=== PATIENT | female | born 1970 | race Caucasian/White ===

== ENCOUNTER 2022-09-11 07:29 | Outpatient (CLI) | payer BC, SELFPAY ==
--- NOTE | 2022-09-11 08:00 | CRLHL7_ITS ---
For Patients: As a result of the Century Cures Act, medical imaging exams and procedure reports are released immediately into your electronic medical record. You may view this report before your referring provider. If you have questions, please contact your health care provider. INDICATION: Abdominal bloating. TECHNIQUE: Contrast-enhanced CT of the abdomen and pelvis. 65 cc nonionic Isovue-370 administered. FINDINGS: At the lung bases there is nodularity along each hemidiaphragm and possible discrete intrapulmonary nodules. A tiny nodule is identified on the right major fissure which could be benign but there is an approximately 1.1 cm nodule at the left lung base potentially arising from the left hemidiaphragm. There is also minimal pleural thickening and/or trace pleural fluid. Soft tissue nodular implant along the inferolateral right lower lobe of the lung along the pleura, image 15 series 2 measuring 0.8 x 1.2 cm. Abdominopelvic ascites which appears malignant given its mass effect upon the liver. Curvilinear low attenuation changes along the capsular surface of the liver posteriorly, image 21 series 2 likely tumor implant. Increased attenuation of the omentum possibly related to omental metastatic disease. There is an ill-defined right lower quadrant/pelvic mass with areas of subtle increased attenuation. This is an ill-defined mass potentially related to an ovarian mass as a normal ovary is not seen on the right. A normal left ovary is also not confidently identified. Abnormal enhancement to the uterus which appears to contain multiple masses some of which are calcified. Within the right lower quadrant there is a tubular-shaped structure with a small calcification or potentially enhancement, image 82 series 2. The possibility of an abnormal appendix is also not excluded. There is no evidence for small or large bowel obstruction. The liver itself is negative for masses or biliary dilatation. No splenomegaly. The pancreas and gallbladder are unremarkable. Both adrenal glands are within normal limits. No hydronephrosis of either kidney. No cystic or solid renal masses. Normal caliber abdominal aorta and iliac arteries. Normal inferior vena cava. The included skeleton is unremarkable. These findings were called to and discussed with Dr. Fiona Banda at 9:50 a.m. on 09/11/2022. IMPRESSION: 1. Malignant-appearing abdominopelvic ascites. Right ovarian mass. Ovarian malignancy is one etiology. 2. Abnormal-appearing uterus. The above described findings could be related to a uterine malignancy. 3. Dilated tubular structure right lower quadrant potentially an appendix. A mucinous carcinoma of the appendix is not entirely excluded. 4. CT changes compatible with metastatic disease involving the omentum and hemidiaphragms and possibly the pulmonary parenchyma as well. 5. Gynecologic oncology consultation is recommended. Please note that all CT scans at this facility use dose modulation, iterative reconstruction, and/or weight-based dosing when appropriate to reduce radiation dose to as low as reasonably achievable. Dictated by Reyes Garcia MD @ 09/11/2022 11:39:21 AM (Electronically Signed)
== END 2022-09-11 07:30 | disposition home or self-care (01) ==
LOC: CT 07:31
PROVIDERS: PCP Family Medicine; Visit Provider Family Medicine
DX: R14.0 Abdominal distension (gaseous) (principal); R18.8 Other ascites; R19.09 Other intra-abdominal and pelvic swelling, mass and lump
CPT/HCPCS: 74177; Q9967

== ENCOUNTER 2022-09-16 07:42 | Outpatient (CLI) | payer BC, SELFPAY ==
--- NOTE | 2022-09-16 08:00 | CRLHL7_ITS ---
For Patients: As a result of the Century Cures Act, medical imaging exams and procedure reports are released immediately into your electronic medical record. You may view this report before your referring provider. If you have questions, please contact your health care provider. Indication: MALIGNANT ASCITES Technique: Post contrast CT chest. 75 cc Isovue 370 intravenous contrast. Please note that all CT scans at this facility use dose modulation, iterative reconstruction, and/or weight-based dosing when appropriate to reduce radiation dose to as low as reasonably achievable. Comparison: Abdominal CT 09/11/2022 Findings: 1.6 cm enhancing nodule left thyroid lobe. Mild residual thymic tissue in the anterior mediastinum. Heterogeneously dense breast tissue appears normal. No axillary adenopathy. No enlarged mediastinal or hilar lymph nodes. No aortic dissection or aneurysm. No pulmonary embolism. Small right pleural effusion. 8 millimeters sclerotic focus within T3. No compression fracture. Upper abdominal ascites. Possible developing clot within the main portal vein extending to the right portal vein. There is suspicion of something within the liver, cannot exclude enhancing lesion. Pleural-based nodule left lower lobe measuring 1.2 cm. Other pleural based nodular densities are present adjacent to both hemidiaphragms. Small nodular densities also associated with the fissures. No pneumothorax. Mild dependent atelectasis. Impression: Pleural-based and perifissural nodules in both lung bases measuring up to 12 millimeters. Small right pleural effusion. Upper abdominal ascites. Indeterminate sclerotic lesion T3 vertebral body measuring 8 millimeters. 1.6 cm enhancing left thyroid lobe nodule. Thyroid ultrasound recommended. Concern for a clot within the portal vein/right portal vein with intrahepatic vascular shunting. Enhancing hepatic lesion not excluded. Dynamic MRI recommended to evaluate for possible metastatic lesion. Called to Dr. Chichi Palencia, covering for Dr. Banda at 0944 09.16.22. Please note that all CT scans at this facility use dose modulation, iterative reconstruction, and/or weight-based dosing when appropriate to reduce radiation dose to as low as reasonably achievable. Dictated by Janes Lopez MD @ 09/16/2022 9:51:52 AM (Electronically Signed)
== END 2022-09-16 07:43 | disposition home or self-care (01) ==
LOC: CT 07:43
PROVIDERS: PCP Family Medicine; Visit Provider Family Medicine
DX: R18.0 Malignant ascites (principal); R91.8 Other nonspecific abnormal finding of lung field; J90 Pleural effusion, not elsewhere classified; M89.9 Disorder of bone, unspecified; E04.1 Nontoxic single thyroid nodule; T82.898A Other specified complication of vascular prosthetic devices, implants and grafts, initial encounter; R93.5 Abnormal findings on diagnostic imaging of other abdominal regions, including retroperitoneum; R19.00 Intra-abdominal and pelvic swelling, mass and lump, unspecified site
CPT/HCPCS: 71260; Q9967